=== PATIENT | male | born 1990 | race Hispanic/Latino ===

== ENCOUNTER 2024-12-12 20:35 | Emergency (ER) | payer OTHER, SELFPAY ==
[2024-12-12 20:41] VITALS: BP 142/102; PULSE 108; RESP 18; TEMP 36.5; O2SAT 98; BMI 29.8
[2024-12-12] MEDS: ONDANSETRON 4 MG/2 ML INJ IV (20:46)
[2024-12-12] MEDS: ONDANSETRON 4 MG ODT PO (21:09)
[2024-12-12 21:28] LABS: Add Manual Diff / Slide Review NO; Basophils Absolute Auto 100 /uL (0-100); Basophils Percent Auto 0.7 % (0-2); Eosinophils Absolute Auto 200 /uL (0-450); Eosinophils Percent Auto 1.7 % (2-4); Hematocrit 47.6 % (41-53); Hemoglobin 16.4 g/dL (13.5-17.5); Lymphocytes Absolute Auto 1100 /uL (1100-4500); Mean Corpuscular HGB Conc 34.5 % (30-36); Mean Corpuscular Hemoglobin 28.6 PG (26-34); Monocytes Absolute Auto 800 /uL (0-900); Monocytes Percent Auto 7.1 % (3-14); Neutrophils Absolute Auto 9700 /uL (1500-7000); Neutrophils Percent Auto 81.5 % (50-75); Platelet Count 365 X10^3/uL (150-400); Red Blood Cell Count 5.74 X10^6/uL (4.5-5.9); White Blood Cell Count 11.9 X10^3/uL (4.5-11.0)
[2024-12-12 21:38] LABS: Alanine Aminotransferase 165 IU/L (<50); Albumin 4.5 g/dL (3.5-5.0); Albumin Globulin Ratio 1.2 (1.0-2.8); Alkaline Phosphatase 162 U/L (38-126); Aspartate Aminotransferase 131 IU/L (17-59); BUN Creatinine Ratio 17.7 (6-22); Bilirubin Total 2.1 mg/dL (0.2-1.3); Blood Urea Nitrogen 14 mg/dL (9-20); Calcium 9.6 mg/dL (8.4-10.2); Carbon Dioxide 21 mmol/L (22-32); Chloride 96 mmol/L (98-107); Estimated Glomerular Filt Rate > 60 mL/min (>60); Globulin 3.8 g/dL (1.7-4.1); Glucose 111 mg/dL (70-100); HEMOLYSIS 15 (0-50); Lipase 86 U/L (23-300); Potassium 3.5 mmol/L (3.4-5.1); Sodium 134 mmol/L (137-145); Total Protein 8.3 g/dL (6.3-8.2)
[2024-12-12 23:05] VITALS: BP 144/82; PULSE 95; RESP 18; O2SAT 99
[2024-12-12 23:30] VITALS: BP 129/81; PULSE 81; O2SAT 96
--- NOTE | 2024-12-12 23:45 | PC.NURSE ---
last emesis @ 1730 INFE[employer]ORDIN[employer], did not vomit after Zofran in ER
[2024-12-13] VITALS (8 sets, daily range): BP systolic 123–142; BP diastolic 63–89; PULSE 69–87; RESP 14–18; O2SAT 96–100
[2024-12-13] MEDS: SODIUM CHLORIDE 0.9% 1,000 ML 1000 ML IV ×2 (00:08→01:59)
--- NOTE | 2024-12-13 01:18 | PC.NURSE ---
Pt ambulatory to restroom without difficulty or assistance.
--- NOTE | 2024-12-13 01:46 | ED.ABDPAIN ---
HPI - Abdominal Pain General Chief Complaint: Abdominal Pain Stated Complaint: vomiting x 5 days Time Seen by Provider: 12/13/24 01:46 Source: patient and family Mode of arrival: Ambulatory History of Present Illness HPI narrative: 34-year-old male with 5 days duration recurrent nausea with nonbloody emesis. No diarrhea. Child and in same household had similar sequential symptoms the last couple of weeks. His nausea and vomiting seemed to be worse and longer in duration however, concern for dehydration. No history of underlying inflammatory bowel disease, IBS, Crohn's disease, ulcers, gallbladder problems. No prior abdominopelvic surgeries recalled. No recent travel or camping. No recent antibiotic exposure. No fevers or chills. No trauma injury or new activities. No change in diet. Related Data Home Medications Medication Instructions Recorded Confirmed No Known Home Medications 12/31/19 12/31/19 Allergies Allergy/AdvReac Type Severity Reaction Status Date / Time amoxicillin AdvReac Intermediate rash Verified 12/31/19 18:02 Patient History Medical History (Updated 12/13/24 @ 02:53 by Aram Arana MD) Sinusitis Social History Smoking Status: Never smoker Smoking Status: Never smoker Exam Narrative Exam Narrative: GENERAL: Well-developed patient, in mild distress. HEAD: Atraumatic. Normocephalic. EYES: Pupils equal round and reactive. Extraocular motions intact. No scleral icterus. No injection or drainage. ENT: Nose without bleeding, purulent drainage. Throat without erythema, tonsillar hypertrophy or exudate. Airway patent. NECK: Trachea midline. Non tender CARDIOVASCULAR: Regular rate and rhythm without murmurs, gallops, or rubs. RESPIRATORY: Clear to auscultation. Breath sounds equal bilaterally. No wheezes, rales, or rhonchi. GASTROINTESTINAL: Abdomen soft, non-tender, nondistended. EXTREMITIES: No edema or joint tenderness. BACK: Nontender without deformity or crepitance. No flank tenderness. NEURO: AOx3. Motor functions grossly nonfocal SKIN: No rash or erythema of visible areas Initial Vital Signs Initial Vital Signs: Vital Signs Temperature 97.7 F 12/12/24 20:41 Pulse Rate 108 H 12/12/24 20:41 Respiratory Rate 18 12/12/24 20:41 Blood Pressure 142/102 H 12/12/24 20:41 Pulse Oximetry 98 12/12/24 20:41 Oxygen Delivery Method Room Air 12/12/24 20:41 Course Orders Ordered: Discontinued Medications Sodium Chloride (Normal Saline 0.9%) 1,000 mls @ 1,000 mls/hr IV BOLUS ONE Stop: 12/13/24 01:01 Last Infusion: 12/13/24 01:18 Dose: Infused Documented By: Admin: 12/13/24 00:08 Dose: 1,000 mls/hr Documented By: MAK Sodium Chloride (Normal Saline 0.9%) 1,000 mls @ 1,000 mls/hr IV BOLUS ONE Stop: 12/13/24 02:52 Last Infusion: 12/13/24 03:04 Dose: Infused Documented By: Admin: 12/13/24 01:59 Dose: 1,000 mls/hr Documented By: FRANCY Ondansetron HCl (Ondansetron 4 Mg/2 Ml Inj) 4 mg IV NOW PRN PRN Reason: Nausea And Vomiting Last Admin: 12/12/24 20:46 Dose: 4 mg Documented By: MAK(2) Ondansetron HCl (Ondansetron 4 Mg Odt) 4 mg PO NOW PRN PRN Reason: Nausea And Vomiting Last Admin: 12/12/24 21:09 Dose: 4 mg Documented By: MANOJ Ondansetron HCl (Ondansetron 4 Mg/2 Ml Inj) 4 mg IV NOW ONE Stop: 12/13/24 01:54 Last Admin: 12/13/24 02:00 Dose: 4 mg Documented By: FRANCY Ondansetron HCl (Ondansetron 4 Mg Odt Prepack) 1 bottle MISC DIRECTED ONE Stop: 12/13/24 02:21 Last Admin: 12/13/24 02:28 Dose: 1 bottle Documented By: FRANCY Vital Signs Vital signs: Vital Signs - 8 hr 12/12/24 20:41 12/12/24 23:05 12/12/24 23:05 Temperature 97.7 F Pulse Rate 108 H 95 H Respiratory Rate 18 18 Blood Pressure 142/102 H 144/82 H Pulse Oximetry 98 99 Oxygen Delivery Method Room Air 12/12/24 23:30 12/12/24 23:30 12/13/24 00:00 Temperature Pulse Rate 81 83 Respiratory Rate Blood Pressure 129/81 Pulse Oximetry 96 96 Oxygen Delivery Method 12/13/24 00:00 12/13/24 00:30 12/13/24 00:30 Temperature Pulse Rate 71 Respiratory Rate 18 Blood Pressure 127/81 141/89 H Pulse Oximetry 100 Oxygen Delivery Method 12/13/24 01:00 12/13/24 01:00 12/13/24 01:21 Temperature Pulse Rate 75 72 Respiratory Rate 16 14 Blood Pressure 142/77 H Pulse Oximetry 98 100 Oxygen Delivery Method Room Air Room Air 12/13/24 01:21 12/13/24 01:30 12/13/24 01:30 Temperature Pulse Rate 72 Respiratory Rate 16 Blood Pressure 131/65 123/63 Pulse Oximetry 97 Oxygen Delivery Method Room Air 12/13/24 02:00 12/13/24 02:00 12/13/24 02:30 Temperature Pulse Rate 87 69 Respiratory Rate 16 17 Blood Pressure 134/84 Pulse Oximetry 96 99 Oxygen Delivery Method Room Air Room Air 12/13/24 02:30 12/13/24 03:00 12/13/24 03:00 Temperature Pulse Rate 69 Respiratory Rate 16 Blood Pressure 141/76 H 134/73 Pulse Oximetry 100 Oxygen Delivery Method Room Air MDM - Abdominal Pain Lab Data Attestation: I reviewed the patient's lab results. Lab results narrative: White blood cell count 99994, hemoglobin 16, platelets adequate. Basic metabolic panel unremarkable. Urinalysis negative. 12/12/24 20:53 12/12/24 20:53 Labs: Lab Results 12/12/24 12/13/24 Range/Units 20:53 01:18 WBC 11.9 H (4.5-11.0) X10^3/uL RBC 5.74 (4.5-5.9) X10^6/uL Hgb 16.4 (13.5-17.5) g/dL Hct 47.6 (41-53) % MCV 83.0 (80-100) fL MCH 28.6 (26-34) PG MCHC 34.5 (30-36) % RDW 15.0 H (11.6-14.8) % Plt Count 365 (150-400) X10^3/uL Neut % (Auto) 81.5 H (50-75) % Lymph % (Auto) 9.0 L (25-40) % [place] % (Auto) 7.1 (3-14) % Eos % (Auto) 1.7 L (2-4) % Baso % (Auto) 0.7 (0-2) % Neut # (Auto) 9700 H (3501-9956) /uL Lymph # (Auto) 1100 (8822-7003) /uL [place] # (Auto) 800 (0-900) /uL Eos # (Auto) 200 (0-450) /uL Baso # (Auto) 100 (0-100) /uL Sodium 134 L (137-145) mmol/L Potassium 3.5 (3.4-5.1) mmol/L Chloride 96 L (98-107) mmol/L Carbon Dioxide 21 L (22-32) mmol/L BUN 14 (9-20) mg/dL Creatinine 0.79 (0.66-1.25) mg/dL Estimated GFR > 60 (>60) mL/min BUN/Creatinine Ratio 17.7 (6-22) Glucose 111 H (70-100) mg/dL Calcium 9.6 (8.4-10.2) mg/dL Total Bilirubin 2.1 H (0.2-1.3) mg/dL AST 131 H (17-59) IU/L ALT 165 H (<50) IU/L Alkaline Phosphatase 162 H (38-126) U/L Total Protein 8.3 H (6.3-8.2) g/dL Albumin 4.5 (3.5-5.0) g/dL Globulin 3.8 (1.7-4.1) g/dL Albumin/Globulin Ratio 1.2 (1.0-2.8) Lipase 86 (23-300) U/L Urine RBC None seen (0-5/HPF) Urine WBC None seen (0-5/HPF) Ur Squamous Epith Cells None seen (0-5/HPF) Urine Bacteria None seen (None) Ur Culture Indicated? Cult not indicated Vol Urine Centrifuged 10ml (spun) Point of care testing: Urine Dip Bedside Urine Glucose Negative Bedside Urine Bilirubin - Negative Bedside Urine Ketone +++ 80 Urine Specific [place] 1.015 Bedside Urine Occult Blood - Negative Bedside Urine pH 6.0 Bedside Urine Protein +/- 15 Bedside Urine Urobilinogen +/- 1mg Bedside Urine Nitrite - Negative Bedside Urine Leukocytes - Negative Esterase MDM Narrative Medical decision making narrative: 34-year-old male with nausea vomiting, afebrile, no tenderness to abdomen, white sclerae, screening labs unremarkable electrolytes, renal function normal. /kids have had recent nausea vomiting symptoms, his symptoms seemed to be longer in duration. Antiemetics given, fluids given. Patient feels better. He would like to go home, discharged home with family. Discharge Plan Departure Patient Disposition: Home Clinical Impression: Nausea and vomiting Activity Restrictions/Additional Instructions: Mr Ram, You had multiple episodes multiple days nausea and vomiting, without blood, without fever, screening labs unremarkable today. No diarrhea. and children with recent similar symptoms though of shorter duration. Your symptoms or suspicious for dehydration as well given the amount of vomiting he had been having, IV fluids were given. IV antinausea medications were also given. You were able to take oral fluids, and your able to walk around the department. Home pack of oral dissolvable ondansetron provided for discharge, for control of nausea if there are any further symptoms. Recheck with your regular doctor if symptoms not improved in the next couple of days. Return to this/nearest emergency department for any change worsening symptoms or any concerns prior. Thank you for allowing our team to evaluate you today. Prescriptions: No Action No Known Home Medications Stand Alone Forms: Patient Portal/API/Survey
[2024-12-13 01:48] LABS: Bacteria Urine None Seen; Culture Indicated Urine Cult Not Indicated; RBC Urine None Seen (0-5/HPF); Squamous Epithelial Cell Urine None Seen (0-5/HPF); Urine Volume 10mL (spun); WBC Urine None Seen (0-5/HPF)
[2024-12-13] MEDS: ONDANSETRON 4 MG/2 ML INJ IV (02:00)
[2024-12-13] MEDS: ONDANSETRON 4 MG ODT PREPACK 1 BOTTLE MISC (02:28)
--- NOTE | 2024-12-14 11:55 | PC.NURSE ---
Called and left message for patient to call back per Dr. Arana . review lfts and return if necessary.
== END 2024-12-13 03:06 | disposition home or self-care (01) ==
PROVIDERS: Emergency Provider Emergency Medicine
DX: R11.2 Nausea with vomiting, unspecified (principal)
CPT/HCPCS: 36415; 80053; 81003; 81015; 83690; 85025; 96361; 96374; 96376; 99284; J2405